=== PATIENT | female | born 1980 | race Caucasian/White ===

== ENCOUNTER 2016-09-27 13:15 | Emergency (ER) | payer OTHER ==
[~2016-09-27] VITALS: Ht 162.6 cm; Wt 84.5 kg
[~2016-09-27 13:15] MED LIST: CEPHALEXIN500 M1 PO; FLEXERIL 1010 MG/TAB PO; NO HOME MEDICATIONS; NORCO 325 MG-51 TAB PO; PEN-VEE K500 MG PO; PRENATAL VITAMI1 TA5 PO; SEPTRA DS 8001 TAB PO; ULTRAM ER100 MG PO
[2016-09-27 13:20] VITALS: BP 119/68; PULSE 76; TEMP 98.7
[2016-09-27 14:07] LABS: INFLUENZA B NEGATIVE
== END 2016-09-27 14:25 | disposition home or self-care (01) ==
LOC: COL.ER 13:15
PROVIDERS: Physician Assistant
DX: B34.9 Viral infection, unspecified (principal); R05 Cough; F17.210 Nicotine dependence, cigarettes, uncomplicated; R09.89 Other specified symptoms and signs involving the circulatory and respiratory systems; R51 Headache

== ENCOUNTER → 2017-09-08 | Outpatient (CLI) | payer OTHER | LOC: MC.RAD 09:00 | DX: N63.14 Unspecified lump in the right breast, lower inner quadrant (principal) ==